=== PATIENT | male | born 1975 | race Caucasian/White ===

== ENCOUNTER 2025-06-19 13:14 | Emergency (ER) | payer BC ==
[2025-06-19 13:24] VITALS: BP 121/82; PULSE 100; RESP 18; TEMP 98.2; BMI 28.0
[2025-06-19] MEDS ORDERED: KETOROLAC TROMETHAMINE 30 MG/1 ML VIAL ONE (14:02)
[2025-06-19] MEDS: KETOROLAC TROMETHAMINE 30 MG/1 ML VIAL IM ONE (14:13)
== END 2025-06-19 14:26 | disposition home or self-care (01) ==
LOC: JERFT 13:14
PROC: 3E0233Z Introduction of Anti-inflammatory into Muscle, Percutaneous Approach (ICD-10-PCS; principal; 2025-06-19)
DX: M75.31 Calcific tendinitis of right shoulder (principal); M25.511 Pain in right shoulder; X50.0XXA Overexertion from strenuous movement or load, initial encounter
CPT/HCPCS: 73030-TC-RT-FY; 99284-25